=== PATIENT | female | born 1985 | race African-American/Black ===

== ENCOUNTER 2017-01-25 21:18 | Emergency (ER) | payer SELFPAY ==
[~2017-01-25] VITALS: Ht 317.5 cm; Wt 70.3 kg
[~2017-01-25 21:18] MED LIST: CEPH-264 PO; FLAV100T PO; HYDR-971 PO; HYDR25TA; IBUP200T43 PO; LORA-434; LORA0.5T96 PO; MELA3TAB2 PO; NAPR500T3 PO; ONDA4TAB10 SL; OXYC-323 PO; PNV1TABL12; SERT100T PO; TOBR3.5O2 OS; TRAM50TA; TRAM50TA PO; TRAZ-90 PO; TRAZ150T49 PO
[2017-01-25 21:48] LABS: AMPHETAMINE/METHAMPHETAMINE NEG (NEG); BARBITURATES NEG (NEG); BENZODIAZEPINES NEG (NEG); CANNABINOIDS NEG (NEG); COCAINE NEG (NEG); METHADONE NEG (NEG); OPIATES NEG (NEG); PHENCYCLIDINE NEG (NEG)
[2017-01-25 21:55] LABS: CLARITY,URINE TURBID; COLOR,URINE YELLOW; GLUCOSE,URINE NEG (NEG); NITRITE,URINE NEG (NEG); UROBILINOGEN,URINE 1 mg/dL (0.2 mg/dL)
[2017-01-25 22:05] LABS: BACTERIA,URINE FEW /HPF (0-FEW); BILIRUBIN,URINE NEG (NEG); RBC,URINE >40 /HPF (0-2); SQUAMOUS EPITHELIAL CELL,UR FEW /LPF
[2017-01-25] MEDS ORDERED: PHEN100T82 PO (22:16)
[2017-01-25] MEDS ORDERED: SULF1TAB24 PO (22:16)
--- NOTE | 2017-01-25 22:19 | PHYS DOC ---
General Chief Complaint: URINARY FREQUENCY Stated Complaint: ABDOMINAL PAIN Time Seen by MD: 21:19 Source: patient Exam Limitations: no limitations Problems: History of Present Illness Initial Comments Patient is a 32-year-old female who comes to the ED complaining of urinary frequency. Patient states that for the past few days she's had worsening urinary frequency with hesitancy and odor. She's had some mild suprapubic discomfort described as a pressure no flank pain no fever chills sweats or body aches no nausea vomiting or diarrhea. Patient has history of urinary tract infections in the past and thinks she has a recurrence. She denies any vaginal symptoms or possibility of . No pre-arrival treatment emergency Department vital signs are normal. Timing/Duration: getting worse, other Severity/Quality: mild, cramping Location: suprapubic Activities at Onset: none Prior Genitourinary Problems: similar symptoms Modifying Factors: worse with movement, worse with palpation, improves with rest, worse with urinating Associated Symptoms: abdominal pain, polyuria, urinary frequency Allergies: Coded Allergies: bee venom (honey bee) (Verified Allergy, Intermediate, Swelling, 03/14/15) latex (Verified Allergy, Intermediate, rash, 03/14/15) pineapple (Verified Allergy, Intermediate, Swelling, 03/14/15) Past Medical History Medical History: other (bipolar disorder, anxiety, depression, gallstones) Surgical History: cholecystectomy (umbilical herniorrhaphy) Family History Significant Family History: no pertinent family hx Social History Smoker: cigarettes Alcohol: occasionally Drugs: none Review of Systems Constitutional: denies chills, denies diaphoresis, denies fever, denies malaise Respiratory: denies cough, denies shortness of breath Cardiovascular: denies chest pain, denies palpitations Gastrointestinal: see HPI Genitourinary: see HPI Musculoskeletal: denies back pain, denies joint swelling, denies neck pain Psychiatric/Neurological: denies headache, denies numbness, denies paresthesia Physical Exam General Appearance: no apparent distress HEENT: normal ENT inspection Neck: non-tender, supple Cardiovascular/Respiratory: normal peripheral pulses, no respiratory distress Gastrointestinal: soft (nondistended, no suprapubic tenderness to palpation without rebound guarding or mass. Negative Villalobos negative McBurney), no pulsatile mass Back: no CVA tenderness, no vertebral tenderness Extremities: non-tender, normal inspection Neurologic/Psychiatric: no motor/sensory deficits, alert, oriented x 3 Skin: normal color, warm/dry Orders, Labs, Meds Urinalysis grossly positive for products of infection I discussed findings with the patient at length. With normal vital signs patient is stable for discharge without further labs or intravenous antibiotics. I discussed symptomatic treatment with Pyridium. Patient expressed agreement and understanding of the treatment plan. As the nurse was trying to discharge the patient the patient became disgruntled and started requesting pain medications. The nurse reiterated the fact that Pyridium would relieve her discomfort while presenting a nonaddictive selection for analgesia. Patient refuses Zofran prescription and left the department in stable condition. She was advised to stop smoking. Departure Time of Disposition: 22:17 Disposition: 01 HOME, SELF-CARE Diagnosis: UTI Condition: GOOD Patient Instructions: Urinary Tract Infection, [id number] Additional Instructions: Aggressive hydration with gatorade, water. OTC tylenol/ibuprofen as needed. Rx: bactrim ds, zofran odt, pyridium Take meds with food. Follow up with your doctor in 3 days for urine culture result and recheck. Return to ED with new or changing symptoms. EMMA CASE DO Jan 25, 2017 22:19
[2017-01-25 22:20] VITALS: BP 129/90
[2017-01-25] MEDS ORDERED: ONDA4TAB10 PO (22:21)
[2017-01-25] MEDS ORDERED: SMZ/TMP 800/160MG TABLET. PO ONE ×2 (22:24→22:30)
[2017-01-25] MEDS ORDERED: ONDANSETRON ODT 4 MG TAB.RAPDIS ONE (22:24)
[2017-01-25] MEDS ORDERED: PHENAZOPYRIDINE 100 MG TABLET. ONE (22:25)
[2017-01-25 22:27] LABS: U PREG PATIENT NEGATIVE (NEG)
[2017-01-25] MEDS ORDERED: PHENAZOPYRIDINE 200 MG TABLET. ONE (22:27)
[2017-01-25] MEDS ORDERED: ONDANSETRON ODT 4 MG TAB.RAPDIS PO ONE (22:30)
[2017-01-25] MEDS ORDERED: PHENAZOPYRIDINE 200 MG TABLET. PO ONE (22:30)
== END 2017-01-25 22:29 | disposition home or self-care (01) ==
LOC: ER 21:18
DX: N39.0 Urinary tract infection, site not specified (principal); F17.210 Nicotine dependence, cigarettes, uncomplicated; F41.9 Anxiety disorder, unspecified; F31.9 Bipolar disorder, unspecified; Z87.440 Personal history of urinary (tract) infections; Z91.030 Bee allergy status; Z91.040 Latex allergy status; Z91.018 Allergy to other foods
CPT/HCPCS: 36415; 80307; 81001; 81025; 87086; 99284; Q0162; G0479

== ENCOUNTER 2017-03-16 18:27 | Emergency (ER) | payer OTHER ==
[~2017-03-16] VITALS: Ht 167.6 cm; Wt 73.5 kg
[~2017-03-16 18:27] MED LIST changes: -NAPR500T3 PO; +NAPR500T4 PO; +ONDA4TAB10 PO; +PHEN100T82 PO; +SULF1TAB24 PO
[2017-03-16 18:50] VITALS: BP 108/61
[2017-03-16] MEDS ORDERED: oxyCODONE/APAP 10/325 1 TAB TABLET PO ONE (19:45)
--- NOTE | 2017-03-17 03:07 | ED.ADGEN ---
Past History Past Medical History: Bipolar Past Surgical History: Cholecystectomy Additional Past Surgical Histo: umbilical hernia repair Smoking: Less than 1pk/day Alcohol Use: Occasionally Drug Use: None Adult General Chief Complaint Chief Complaint Buttocks pain HPI HPI Patient is a 32-year-old AA female presents with pain tenderness and swelling over midline buttocks. Doesn't began today is ago. History of pilonidal cyst.[] Review of Systems Review of Systems ROS as per HPI> Current Medications Current Medications Current Medications Medications (Trade) Dose Ordered Sig/Anthony Start Time Stop Time Status Last Admin Dose Admin Oxycodone/ Acetaminophen (Percocet 10/325) 1 tab 1X ONCE 03/16/17 19:45 03/16/17 19:46 DC 03/16/17 19:36 1 TAB Allergies Allergies Allergies Coded Allergies Type Severity Reaction Last Updated Verified bee venom (honey bee) Allergy Intermediate Swelling 03/14/15 Yes latex Allergy Intermediate rash 03/14/15 Yes pineapple Allergy Intermediate Swelling 03/14/15 Yes Physical Exam Physical Exam Constitutional: Well developed, alert discomfort secondary to pain, unable to sit midline. [] HENT: Normocephalic, atraumatic, bilateral external ears normal, oropharynx moist, no oral exudates, nose normal. [] Eyes: PERRLA, EOMI, conjunctiva normal, no discharge. [] Neck: Normal range of motion, no tenderness, supple, no stridor. [] Cardiovascular:Heart rate regular rhythm, no murmur [] Lungs & Thorax: Bilateral breath sounds clear to auscultation [] Current Patient Data Vital Signs Vital Signs Date Time Temp Pulse Resp B/P (MAP) Pulse Ox O2 Delivery O2 Flow Rate FiO2 03/16/17 18:50 99.1 95 20 100 Room Air EKG EKG [] Radiology/Procedures Radiology/Procedures [] Course & Med Decision Making Course & Med Decision Making Pertinent Labs and Imaging studies reviewed. (See chart for details) [Symptoms consistent with early pilonidal abscess I&D currently not indicated. Will place on antibiotics pain medication, abx, warm compresses, supportive care with PCP follow-up for surgical referral. Return precautions reviewed] Final Impression Final Impression [1.Pilonidal cyst without abscess] Problems: Dragon Disclaimer Dragon Disclaimer This electronic medical record was generated, in whole or in part, using a voice recognition dictation system. RIGOBERTO JACOB DO Mar 17, 2017 03:07
== END 2017-03-16 19:38 | disposition home or self-care (01) ==
LOC: ER 18:27
DX: L05.91 Pilonidal cyst without abscess (principal); F17.200 Nicotine dependence, unspecified, uncomplicated; Z90.49 Acquired absence of other specified parts of digestive tract; Z91.030 Bee allergy status; Z91.040 Latex allergy status; Z91.018 Allergy to other foods
CPT/HCPCS: 99283

== ENCOUNTER 2017-03-19 00:38 | Emergency (ER) | payer OTHER ==
[~2017-03-19] VITALS: Ht 167.6 cm; Wt 73.0 kg
[2017-03-19 01:30] VITALS: BP 124/73
--- NOTE | 2017-03-19 02:12 | PHYS DOC ---
Past History Past Medical History: Bipolar Past Surgical History: Cholecystectomy Additional Past Surgical Histo: umbilical hernia repair Smoking: Less than 1pk/day Alcohol Use: Occasionally Drug Use: None Adult General Chief Complaint Chief Complaint: ABSCESS HPI HPI Patient is a 32 year old F who presents with an abscess on her buttock. Patient was seen 2 days ago in the emergency room for similar symptoms and was given antibiotics with no I&D. Patient states she's been taken her antibiotics however the pains got worse and the area has gotten bigger therefore came back to the emergency room for an I&D. Patient denies any systemic symptoms such as a fever or chest pain or shortness of breath. Patient denies any nausea/vomiting /diarrhea. Patient has no other complaints. Review of Systems Review of Systems GEN: Denies fevers, chills, sweats HEENT: Denies blurred vision, sore throat CV: Denies chest pain RESP: Denies shortness of air, cough GI: Denies n/v/d NEURO: Denies confusion, dizziness MSK: Denies weakness, joint pain/swelling SKIN: Skin abscess Allergies Allergies Allergies Coded Allergies Type Severity Reaction Last Updated Verified latex Allergy Intermediate rash 03/19/17 Yes pineapple Allergy Intermediate Swelling 03/19/17 Yes venom-honey bee Allergy Intermediate Swelling 03/19/17 Yes Physical Exam Physical Exam GEN.: No apparent distress. Alert and oriented. HEENT: Head is normocephalic, atraumatic NECK: Supple. LUNGS: CTAB. HEART: RRR, S1, S2 present. Peripheral pulses intact ABDOMEN: Soft, nontender. Positive bowel sounds. EXTREMITIES: Without any cyanosis. NEUROLOGIC: Normal speech, normal tone PSYCHIATRIC: Normal affect, normal mood. SKIN: No ulcerations, at the cephalad portion of the buttocks on the left side there is an indurated area approximately 3 cm there is tenderness palpation with a small area of fluctuance Current Patient Data Vital Signs Vital Signs Date Time Temp Pulse Resp B/P (MAP) Pulse Ox O2 Delivery O2 Flow Rate FiO2 03/19/17 01:30 98.9 84 20 94 Room Air EKG EKG [] Radiology/Procedures Radiology/Procedures Indication: Skin abscess Procedure: The patient was positioned appropriately and the skin over the incision site was cleaned with Betadine. Local anesthesia was 2% lidocaine with epi approximately 4 mL used. An incision was then made over the cephalad portion of the buttocks on the left and small amount of purulent material was expressed. Loculations were broken up with a hemostat. The drainage cavity was then probed with hemostat. The patients tetanus status was up-to-date. The patient tolerated the procedure tolerated. Complications: None[] Course & Med Decision Making Course & Med Decision Making Pertinent Labs and Imaging studies reviewed. (See chart for details) ED course: Patient was seen and examined emergency room an I&D was performed at bedside Recommended the patient to do sits baths couple times a day for approximately 20 minutes to help promote drainage and continue taking the antibiotics as previously prescribed MDM: After reviewing the chart, CC/HPI/PMH, physical exam, I do not believe the patient has significant bacterial infection warranting further workup and/or admission at this time. Patient has a small skin abscess that was drained at bedside and patient was told to continue antibiotics as previously prescribed and to follow-up with PCP. There is recommended patient do sitz baths couple times a day. Additional verbal discharge instructions were provided to the patient and that if symptoms get worse or any new symptoms arise that are worrisome to the patient she is to return to the emergency room immediately [] Dragon Disclaimer Dragon Disclaimer This chart was dictated in whole or in part using Voice Recognition software in a busy, high-work load, and often noisy Emergency Department environment. It may contain unintended and wholly unrecognized errors or omissions. Departure Departure: Impression: Primary Impression: Pilonidal abscess Disposition: HOME, SELF-CARE Condition: STABLE Referrals: PCP,UNKNOWN (PCP) Patient Instructions: Pilonidal Cyst, Pilonidal Cyst, Care After Additional Instructions: Please follow-up with your family physician in the next one to 2 days and return if symptoms increase. Please continue to take the antibiotics as previously prescribed and please do sitz bath to 3 times a day for approximately 20 minutes Scripts Ibuprofen (IBUPROFEN) 800 Mg Tablet 1 TAB PO TID Y for PAIN for 10 Days, #30 TAB 1 Refill Prov: SUSAN RAZO DO 03/19/17 SUSAN RAZO DO Mar 19, 2017 02:12
[2017-03-19] MEDS ORDERED: IBUP800T19 PO (02:33)
== END 2017-03-19 02:44 | disposition home or self-care (01) ==
LOC: ER 00:38
DX: L05.01 Pilonidal cyst with abscess (principal); F17.200 Nicotine dependence, unspecified, uncomplicated; Z90.49 Acquired absence of other specified parts of digestive tract; Z91.030 Bee allergy status; Z91.040 Latex allergy status; Z91.018 Allergy to other foods
CPT/HCPCS: 10080; 99283-25